=== PATIENT | female | born 1975 | race Two or more races ===

== ENCOUNTER 2025-02-21 01:25 | Emergency (ER) | payer MEDICAID, SELFPAY ==
[2025-02-21 01:27] VITALS: BMI 32.3
--- NOTE | 2025-02-21 01:30 | EKG_ITS ---
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
[2025-02-21 01:37] VITALS: BP 164/90; PULSE 86; RESP 19; TEMP 36.5; O2SAT 96
[2025-02-21] MEDS: DIAZEPAM INJ 5 MG/ML VIAL 2 ML 10 MG IM (02:38)
[2025-02-21 04:42] VITALS: BP 142/80; PULSE 80; RESP 16; TEMP 36.6; O2SAT 98
--- NOTE | 2025-02-21 05:33 | EDNOTE_ITS ---
ED Anxiety RME/HPI General Chief Complaint: Anxiety Stated Complaint: ANXIETY ATTACK AFTER EATING A MARIJUANA EDIBLE Time Seen by Provider: 02/21/25 01:58 Arrival date/time: 02/21/25 01:25 49F with no significant PMH presents to ED with anxiety attack after accidentally eating a marijuana edible her children left on the table. Limitations: no limitations Related Data Allergies Allergy/AdvReac Type Severity Reaction Status Date / Time No Known Allergies Allergy Verified 02/21/25 01:28 Review of Systems Review of Systems Systems Reviewed: All systems reviewed, normal except as documented Constitutional Constitutional: Reports system reviewed and no additional complaints, except as documented, Denies fever(s) and Denies headache(s) ENT Ears, Nose, Mouth, and Throat: Denies disequilibrium and Denies headache(s) Cardiovascular Cardiovascular: Reports system reviewed and no additional complaints, except as documented, Denies chest pain and Denies dyspnea Respiratory Respiratory: Reports system reviewed and no additional complaints, except as documented, Denies cough and Denies dyspnea Gastrointestinal Gastrointestinal: Reports system reviewed and no additional complaints, except as documented, Denies abdominal pain, Denies nausea and Denies vomiting Neurologic Neurologic: Reports system reviewed and no additional complaints, except as documented, Denies confusion, Denies disequilibrium and Denies headache(s) Psychiatric Psychiatric: Reports as per HPI, Reports anxiety, Denies confusion and Reports panic attacks Past Medical History Social History SMOKING STATUS: Never smoker ED Exam General Limitations: Present no limitations General appearance: Present alert, appears intoxicated (mild) and anxious Head Head exam: Present atraumatic Eye Eye exam: Present normal appearance, PERRL and EOMI ENT ENT exam: Present normal exam, normal oropharynx and mucous membranes moist Neck Neck exam: Present normal inspection, full ROM and trachea midline Chest Chest inspection: Present normal inspection and symmetric chest wall rise Respiratory Respiratory exam: Present normal lung sounds bilaterally Cardiovascular Cardiovascular exam: Present regular rate, normal rhythm and normal heart sounds Abdominal Exam Abdominal exam: Present soft and normal bowel sounds Extremities Exam Extremities exam: Present normal inspection and full ROM Back Exam Back exam: Present normal inspection and full ROM Neurological Exam Neurological exam: Present alert, oriented X3 and CN II-XII intact Psychiatric Psychiatric exam: Present normal affect and normal mood Skin Skin exam: Present warm, dry, intact and normal color Course Quality Measures none Orders Category Date Time Status EKG (ED ONLY) *Do not use* NOW Care 02/21/25 01:30 Completed EKG (ED Only) Stat Exams 02/21/25 01:30 Draft Diazepam Inj [Valium Inj] Med 02/21/25 01:59 Discontinued 10 mg IM X1 ONE Vital Signs Vital signs: Vital Signs Temperature 97.7 F 02/21/25 01:37 Pulse Rate 86 02/21/25 01:37 Respiratory Rate 19 02/21/25 01:37 Blood Pressure 164/90 H 02/21/25 01:37 Pulse Oximetry (%) 96 02/21/25 01:37 Oxygen Delivery Method Room Air 02/21/25 01:37 Anxiety MDM Narrative MDM Narrative: 49F with no significant PMH presents to ED with anxiety attack after accidentally eating a marijuana edible her children left on the table. Physical exam reveals normal WOB. RRR. Patient is afeberile, alert, but anxious/mildly intoxicated. EKG is NSR. Meds improved symptoms. Patient data External records reviewed:: None Clinical information provided by:: patient Social determinants that could affect healthcare access:: none Patient has the following chronic illnesses:: none How is presenting disease/condition affected by chronic disease/condition?: no chronic disease Evaluation data The following diagnostics were reviewed and interpreted by me:: EKG tracing(s) Lab and/or radiology exams considered but not ordered:: ordered Interpretation Summary: above Medications / Prescriptions Medications or Prescriptions considered but not ordered:: ordered Medication administrations:: Medication Administration History Discontinued Medications Diazepam (Diazepam Inj 5 Mg/Ml Vial 2 Ml) 10 mg IM X1 ONE Stop: 02/21/25 02:00 Last Admin: 02/21/25 02:38 Dose: 10 mg Documented By: CB Consultations Consultation(s) initiated? (list below): No Diagnosis Differential diagnosis anxiety: hyperventilation, panic disorder, acute anxiety and other (drug adverse effect) Most likely diagnosis given after review of the tests above:: drug adverse effect Admission Indicated Admission indicated?: not indicated Admission Request Was there a request for admission?: No Disposition Plan Disposition Plan: Discharge Discharge Attestation Discharge Attestation: The patient and all family members were given an opportunity to ask questions and understood the discharge instructions. Discharge instructions specifically effects, indications for sooner follow up or return to the emergency department, and the expected course of current diagnosis. Patient condition: Stable Discharge Plan Plan Patient Disposition: HOME (Self Care) Disposition Comment: Stable Prescriptions/Referrals Referrals: Raul Rosales MD [Primary Care Provider] - In 1 week Problem List Clinical Impression: Adverse reaction to cannabis Patient/Caregiver Discharge Instructions Additional Instructions: Please follow-up with PCP within 24-48 hours and return immediately if symptoms worsen. Print Language: Russian Stand Alone Forms: Patient Portal Info Letter PA/AVIATION SAFETY TECHNICIAN Supervising Physician PA/AVIATION SAFETY TECHNICIAN Supervising Physician: Dr. Baird
== END 2025-02-21 04:43 | disposition home or self-care (01) ==
PROVIDERS: Emergency Provider Emergency Medicine; PCP Family Medicine
DX: F41.9 Anxiety disorder, unspecified (principal); T40.715A Adverse effect of cannabis, initial encounter
CPT/HCPCS: 93005; 96372; 99283; J3360